=== PATIENT | female | born 1935 | race Two or more races ===

== ENCOUNTER 2019-09-14 13:40 | Emergency (ER) | payer OTHER ==
[~2019-09-14] VITALS: Ht 167.6 cm; Wt 81.6 kg
[~2019-09-14 13:40] MED LIST: ACETAMINOPHEN-1 EAC1 ORAL; ADVAIR 500-501 EACH INH; AMLODIPINE BESY10 MG ORAL; ATORVASTATIN CA20 MG ORAL; HYTRIN2 MG PO; LABETALOL HCL200 MG ORAL; LATANOPROST2.5 ML BOTH EYES; LEVOTHYROXINE100 MCG; LOSARTAN POTAS100 MG ORAL; NOVOLOG100 UNIT/3 SQ; PROAIR HFA8.5 GM INH; QVAR7.3 GM INH; SYNTHROID88 MCG ORAL; VICTOZA 2-0.6 MG/0.1 SUBQ; VICTOZA 3-0.6 MG/0.1 SUBQ
[2019-09-14 14:00] VITALS: BP 154/78
[2019-09-14] MEDS ORDERED: BACITRACIN15 GM TOPIC (14:09)
[2019-09-14] MEDS ORDERED: AUGMENTIN 875-1 EAC1 ORAL (14:09)
--- NOTE | 2019-09-14 14:11 | Emergency Room Report ---
History of Present Illness General Chief Complaint: Animal Bite Source: Patient, Medical Record Present Illness HPI Disclaimer: Please note that this report is being documented using DRAGON technology. This can lead to erroneous entry secondary to incorrect interpretation by the dictating instrument. HPI: 83-year-old female presents for evaluation of a bite on her right hand from a dog. Patient is right-hand dominant. She was given a dog by a friend yesterday with unknown vaccination history. Tried to pick it up this morning when it bit her on the dorsum of the right index finger. She has preserved flexion and extension, sensation, denies weakness, significant pain, discharge. There was some bleeding but it is now hemostatic after applying pressure. She cleaned it with peroxide and water. Tetanus is up-to-date. Is never received the rabies vaccine. Dog is been removed from the home by a friend. No other injury sustained. No other complaints at this time. PMH: Diabetes, hypertension, hyperlipidemia, CAD PSH: Denies Allergies: Denies Social Hx: Denies current drug or alcohol use. Prior tobacco use Allergies: Coded Allergies: ASPIRIN (Verified Allergy, Unknown, 04/27/14) LISINOPRIL (Verified Allergy, Unknown, 04/27/14) METFORMIN (Verified Allergy, Unknown, 04/27/14) SIMVASTATIN (Verified Allergy, Unknown, 04/27/14) VERAPAMIL (Verified Allergy, Unknown, 04/27/14) Patient History Last Menstrual Period: N/A Now: No Nursing Documentation-PMH Hx Cardiac Problems: Yes - HIGH CHOLESTEROL Hx Hypertension: Yes Hx Asthma: Yes Hx Diabetes: Yes Hx Cancer: No Hx Gastrointestinal Problems: Yes Hx Neurological Problems: No Review of Systems All Other Systems: negative except mentioned in HPI Physical Exam Vital Signs Date Time Temp Pulse Resp B/P (MAP) Pulse Ox O2 Delivery O2 Flow Rate FiO2 09/14/19 13:51 98.4 69 18 167/74 (105) 94 Room Air General: Awake and alert, no acute distress HEENT: NC/AT. EOMI. Resp: Normal work of breathing Skin: 0.5 cm superficial skin tear over the dorsum of the right hand on the right index finger. Does not involve the joint space. Multiple abrasions over the dorsum of the right index finger. Hemostatic, no surrounding edema, erythema, drainage or bleeding. MSK: Able to flex and extend all digits on the right hand. Full range of motion of the wrist, elbow. Neuro: Awake and alert. Mentating appropriately. Sensation intact to light touch over the radial and ulnar aspect of all digits Medical Decision Making Diagnostic Impression: Primary Impression: Dog bite, hand ER Course 83-year-old [id number] female presents for evaluation of a dog bite to the right hand. The patient's tetanus is up-to-date however she will be given a rabies vaccine given the unknown status of the dog's immunizations. Has been removed from the house. No other injuries reported and wounds are superficial. She will be cleaned out with a thorough scrub in the emergency department, given prescriptions for Augmentin and bacitracin. Does not require primary closure. Do not believe he requires emergent imaging. Follow-up closely with PMD regarding further need for rabies vaccinations and reevaluation. Discussed reasons to return to the emergency department. She understands and agrees with this treatment plan. Last Vital Signs Date Time Temp Pulse Resp B/P (MAP) Pulse Ox O2 Delivery O2 Flow Rate FiO2 09/14/19 13:51 98.4 69 18 167/74 (105) 94 Room Air Disposition: HOME, SELF-CARE Condition: Stable Scripts Bacitracin (Bacitracin) 28.4 Gm Oint...g. 1 APPLIC TOPIC THREE TIMES A DAY for 5 Days, #28 GM Prov: Abhijeet Lu MD 09/14/19 Amoxicillin/Potassium Clav 875-125* (AUGMENTIN 875-125 TABLET*) 1 Each Tablet 1 TAB ORAL TWICE A DAY for 7 Days, #14 TAB Prov: Abhijeet Lu MD 09/14/19 Referrals: Gilberto Tomlinson. [facility] Open 24 hour /7 days a week by Appointment Only [address] [facility] [address] [facility] [id number] Patient Instructions: Animal Bite Additional Instructions: He will be started on antibiotics for prevention of infection. Keep the area clean and dry and covered with a bandage until fully healed. You are given a rabies vaccine in the emergency department today. Follow-up with your doctor in the next 2 to 3 days for reevaluation. If you see signs of significant swelling, worsening pain, drainage, persistent bleeding, numbness, tingling, weakness or any other sudden changes in your health return to the emergency department immediately for reevaluation. Abhijeet Lu MD Sep 14, 2019 14:11
[2019-09-14] MEDS ORDERED: RABIES VACCINE 2.5 UNIT IM ONE (14:15)
[2019-09-14] MEDS ORDERED: Bacitracin Oint UD TOPIC ONE (14:15)
[2019-09-14 14:45] VITALS: BP 153/79
== END 2019-09-14 14:45 | disposition home or self-care (01) ==
LOC: EMR 14:43
DX: S61.451A Open bite of right hand, initial encounter (principal); Z20.3 Contact with and (suspected) exposure to rabies; W54.0XXA Bitten by dog, initial encounter; Y92.9 Unspecified place or not applicable; Z88.6 Allergy status to analgesic agent; Z88.8 Allergy status to other drugs, medicaments and biological substances; E11.9 Type 2 diabetes mellitus without complications; I10 Essential (primary) hypertension; E78.5 Hyperlipidemia, unspecified; I11.9 Hypertensive heart disease without heart failure; I25.10 Atherosclerotic heart disease of native coronary artery without angina pectoris; E78.00 Pure hypercholesterolemia, unspecified
CPT/HCPCS: 90375; 99283; G0009